=== PATIENT | female | born 1960 | race Caucasian/White ===

== ENCOUNTER 2025-01-17 03:22 | Day surgery (SDC) | payer OTHER, SELFPAY ==
[2025-01-08 13:41] VITALS: BMI 23.6
--- OUTSIDE RECORDS SUMMARY | 2025-01-17 03:25 | XMS_ITS | Referral Summary ---
Author Organization [facility] Address [address] [place] [address] Care Team Providers Care Gymnastic Teacher Name Role Phone Kasia Hubbard CHRONIC DISEASE MANAGER Primary Care Provider Allergies Active Allergy Reactions Criticality Noted Date Comments Cephalexin Rash Medium 01/01/2023 Latex Rash Medium 01/01/2023 Medications naproxen (NAPROSYN) 500 mg tablet Take 1 tablet (500 mg total) by mouth 2 (two) times a day with meals 30 tablet 01/01/2023 Active acetaminophen ER (TYLENOL) 650 mg 8 hr tablet Take 1 tablet (650 mg total) by mouth every 8 (eight) hours as needed for pain Active Active Problems Problem Noted Date Diagnosed Date Closed nondisplaced fracture of left calcaneus 0 01/21/2023 Social History Tobacco Use Types Packs/Day Years Used Date Smoking Tobacco: Never Tobacco Cessation:Counseling Given: Not Answered Personal Safety Answer Date Recorded Have you ever been in or are you currently in a harmful physical or emotional relationship or is someone making you feel afraid or unsafe? 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 Not on file Not on file Not on file Last Filed Vital Signs Vital Sign Reading Time Taken Comments Blood Pressure 129/87 01/01/2023 9:52 AM CDT Pulse 67 01/01/2023 9:52 AM CDT Temperature 36.6 C (97.9 F) 01/01/2023 8:45 AM CDT Respiratory Rate 18 01/01/2023 9:52 AM CDT Oxygen Saturation 98% 01/01/2023 9:52 AM CDT Inhaled Oxygen Concentration - - Weight 72.6 kg (160 lb) 04/13/2023 8:35 AM CDT Height 170.2 cm (5' 7) 04/13/2023 8:35 AM CDT Body Mass Index 25.06 04/13/2023 8:35 AM CDT Plan of Treatment Not on file Procedures Procedure Name Priority Date/Time Associated Diagnosis Comments SCREENING MAMMOGRAM BILATERAL W JONATHAN Schedule Routine, Read Routine (OP Routine) 06/15/2024 7:43 AM CDT Screening mammogram, encounter for from Last 3 Months or Most Recently Relevant to Health Maintenance Results * Screening Mammogram Bilateral W Jonathan (06/15/2024 7:43 AM CDT) Anatomical Region Laterality Modality Breast Bilateral Mammography Impressions 06/15/2024 8:42 AM CDT BI-RADS ATLAS category (overall): 1 - Negative There is no mammographic evidence of malignancy. A 1 year screening mammogram is recommended. The patient has been or will be contacted. We recommend annual screening mammography for women at average risk of breast cancer beginning at age 40, based on guidelines of the [employer] (ACR Practice Parameter for the Performance of Screening and Diagnostic Mammography) and [employer] of Obstetricians [employer] Gynecologists. For women with and elevated risk of breast cancer, please refer to the ACR Practice Parameter for specific screening recommendations. The patient will be entered into a reminder system with a target due date of 1 year for her next screening exam. Narrative 06/15/2024 8:42 AM CDT Screening Mammogram Bilateral W Jonathan: 06/15/24 The study was acquired using full field digital technology and interpreted from soft copy. 2D digital mammographic views, as well as 3D digital tomosynthesis were performed in the CC and MLO projections. CLINICAL: Screening mammogram, encounter for. No relevant medical history has been documented for this patient. No known family history of breast cancer. COMPARISONS: 09/23/2022 Screening Mammogram Bilateral W Jonathan 07/20/2021 Screening Mammogram Bilateral W Jonathan 11/06/2018 Screening Mammogram Bilateral W Jonathan 02/23/2017 Diagnostic Mammogram Bilateral W Jonathan 08/25/2016 Diagnostic Mammogram Bilateral W Jonathan 07/27/2016 Screening Mammogram Bilateral W Jonathan BREAST TISSUE: There are scattered areas of fibroglandular density. FINDINGS: No suspicious masses, suspicious calcifications, or other suspicious findings are seen within either breast. There has been no suspicious change. us Self Screening Mammogram IMG MAMMO PROCEDURES Fi nal Result from Last 3 Months or Most Recently Relevant to Health Maintenance Insurance Member Subscriber Plan / Payer (Ef fective 2020-Present) Name:Sil Wilson Relation to Subscriber:Self Name:Sil Wilson Payer ID:[id number] (NAIC) Type:[facility] HMO/PPO Address: [place] [phone] Care Teams Gymnastic Teacher Relationship Specialty Start Date End Date Kasia Hubbard NP [address] [place] [address] PCP - General Nurse Practitioner 06/06/24
--- OUTSIDE RECORDS SUMMARY | 2025-01-17 03:25 | XMS_ITS | Encounter Summary ---
Author Organization [facility] Address [address] [place] [address] Care Team Providers Care Shared Services Representative Name Role Phone Unavailable Primary Care Provider Unavailgary e Encounter Details Date Type Department Care Team (Late st Contact Info) Description 04/20/2018 Lab Requisition [facility] Care DermPath Lab [address] [facility] [place] [id number] Sil Steel MD [address] [facility] [address] [place] [address] Social History Tobacco Use Types Packs/Day Years Used Date Smoking Tobacco: Never Assessed Comments Unknown Sex and Gender Information Value Date Recorded Sex Assigned at Not on file Legal Sex Female 3:09 PM CDT Gender Identity Not on file Sexual Orientation Not on file documented as of this encounter Plan of Treatment Not on file documented as of this encounter Procedures Procedure Name Priority Date/Time Associated Diagnosis Comments DERMATOPATH TECHNICAL REPORT Routine 04/18/2018 12:00 AM CDT documented in this encounter Results * DERMATOPATH TECHNICAL REPORT (04/18/2018 12:00 AM CDT) Case Report Dermatopathology Report Case: [id number] Authorizing Provider: Sil Steel MD Collected: 04/18/2018 12:00 AM Pathologist: Mery Crain MD Received: 04/20/2018 06:39 AM Specimens: A) - Skin, right lower leg - superior B) - Skin, right lower leg - inferior 1:20 PM CDT DERMATOPATHOLOGY LABORATORY Clinical History A-B: BCC, non-healing. Check margins. 1:20 PM CDT DERMATOPATHOLOGY LABORATORY Gross Description Specimen A: Received is one formalin filled container labeled with the patient's name and designated right lower leg - superior. The specimen consists of a shave measuring [id number]. The margin is inked green. Jar 0. Specimen B: Received is one formalin filled container labeled with the patient's name and designated right lower leg - inferior. The specimen consists of a shave measuring [id number]. The margin is inked green. Jar 0. [facility] Dermatopathology Laboratory performed the technical component only. 8 1:20 PM CDT DERMATOPATHOLOGY LABORATORY Embedded Images 1:20 PM CDT DERMATOPATHOLOGY LABORATORY DISCLAIMER An external and internal positive and negative controls are appropriate for the histochemical, immunohistochemical and immunofluorescence stain(s) in this case (if any), except where stated explicitly. The performance characteristics of the stain(s) cited in this report were developed and its performance characteristic determined by the Dermatopathology Laboratory at [facility]. These tests need not be, and therefore are not, approved by the [place] Food and Drug Administration. The tests are used for clinical purposes. 8 1:20 PM CDT DERMATOPATHOLOGY LABORATORY at 1320 CDT Pathology/Cytology TISSUE SPECIMEN FROM SKIN / Unknown 04/18/2018 04/20/2018 6:39 AM CDT Miscellaneous samples (specimen) TISSUE SPECIMEN FROM SKIN / Unknown 04/18/2018 04/20/2018 6:39 AM CDT Sil Steel MD LAB - PATHOLOGY/CYTOLOGY OR DERABLES Final Result DERMATOPATHOLOGY LABORATORY [facility] - Department of Dermatology [facility] [facility] [address]th [address] [place], [place] [address] [phone] documented in this encounter Visit Diagnoses Not on filedocumented in this encounter
--- OUTSIDE RECORDS SUMMARY | 2025-01-17 03:25 | XMS_ITS | Clinical Summary ---
Author Organization [facility] Address [address] [place] [address] Care Team Providers Care Associate Merchandiser Name Role Phone Kasia Hubbard CUSTOMER QUALITY ENGINEER Primary Care Provider Allergies Active Allergy Reactions [...] nondisplaced fracture of left calcaneus 0 01/21/2023 Surgical History Surgery Date Site/Laterality Comments BACK SURGERY 08/22/2005 - 08/21/2006 micro discectomy Medical History Medical History Date Comments Asthma Family History Medical History Relation Name Comments Arthritis Father Heart disease Father Hernia Father Ulcers Father Arthritis Mother Diverticulitis Mother Relation Name Status Comments Father Mother Social History Tobacco Use Types Packs/Day Years [...] on file Legal Sex Female 5:52 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 Gender Identity Not on file Sexual Orientation Not on file Occupation Industry Job Start Date Job End Date 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 Not on file Not on file Not on file Obstetrics History Para Term AB IAB SAB Ectopic Multiple Livin g Live Births 1 1 1 Date Outcome GA Total Labor Labor/2nd/3rd Weight Sex Type Anes PTL Indira A1 A5 Name Clin Term Last Filed Vital Signs Vital Sign Reading [...] 04/13/2023 8:35 AM CDT Plan of Treatment Health Maintenance Due Date Last Done Comments Cervical Cancer Screening 1962 Colon Cancer Screening-Colonoscopy 1962 Depression Screening 1962 Hepatitis C Screening 1962 DTaP/Tdap/Td Vaccine (1 - Tdap) 1973 Hepatitis B Screening 1980 Regular Well Visit/Exam 18-64 1980 Pneumococcal vaccine <65 (1 of 2 - PCV) 1981 Zoster Vaccine (1 of 2) 2012 Covid-19 Vaccine (2 - 2023-2 5 season) 2024 01/05/2021 Influenza Vaccine (Season Ended) 2025 05/24/2019, 08/20/2013, 07/06/2013, Additional history exists Breast Cancer Screening-Mammogram 06/15/2025 06/15/2024, 09/23/2022, 07/20/2021, Additional history exists Procedures Procedure Name Priority Date/Time Associated Diagnosis [...] age 40, based on guidelines of the [place] [employer] (ACR Practice Parameter for the Performance of Screening and Diagnostic Mammography) and [place] [employer]nec[employer]. For women [...] Most Recently Relevant to Health Maintenance Insurance [id number] [place] [id number] [facility] CHO[facility] PLUS [facility] Address: [place] [address] [facility] PLUS [facility]O [place] [address] Care Teams Associate Merchandiser Relationship Specialty Start Date End Date Kasia Hubbard NP [address] [place] [address] DE[place] [address] PCP - General Nurse Practitioner 06/06/24
--- OUTSIDE RECORDS SUMMARY | 2025-01-17 03:25 | XMS_ITS | Clinical Summary ---
Author Organization [facility] [employer] Address [address] [facility] [place] [address] Care Team Providers Care Sas Architect Name Role Phone Unavailable Primary Care Provider Unavailabl e Source Comments [facility] Social [employer],non-owned Affiliates and Associated Physician Practices is amultiple site organization consisting of ambulatory clinics and hospital sitesin [place], [place], [place] and [place]. This disclosure is being madepursuant to the Care Everywhere program and may not contain all information available regarding this patient. Last updated 18.[facility] Social Tools Social History Tobacco Use Types Packs/Day Years Used Date Smoking Tobacco: Never Assessed Comments Unknown Sex and Gender Information Value Date Recorded Sex Assigned at Not on file Legal Sex Female 3:09 PM CDT Gender Identity Not on file Sexual Orientation Not on file Plan of Treatment Health Maintenance Due Date Last Done Comments COLOGUARD (AGES 45-75) - COL ON CA SCREENING 1962 COLON MONITORING 1962 COLONOSCOPY - COLON CA SCREENING 1962 CT COLONOGRAPHY - COLON CA SCREENING 1962 Colorectal Cancer Screening 1962 FIT - COLON CA SCREENING 1962 FLEX SIG - COLON CA SCREENING 1962 LIPID TESTING 1962 MAMMOGRAM 1962 HIV SCREENING 1977 HEPATITIS C SCREENING 07/26/1980 DTAP/TDAP/TD VACCINES (1 - Tdap) 1981 PNEUMOCOCCAL VACCINE 50+ (1 of 1 - PCV) 2012 ZOSTER VACCINE (1 of 2) 2012 COVID-19 VACCINE ( - 2023-2 5 season) 2024 DEPRESSION SCREENING 08/22/2024 INFLUENZA VACCINE (Season Ended) 2025 Respiratory Syncytial Virus (RSV) Vaccine Pt: or over 60 yrs (1 - 1-dose 75+ series) 2037 HEPATITIS B VACCINE Aged Out No longe r eligible based on patient's age to complete this topic HIB VACCINE Aged Out No longer eligi ble based on patient's age to complete this topic HPV VACCINE Aged Out No longer eligi ble based on patient's age to complete this topic MENINGOCOCCAL (Group B) VACC INE SHARED DECISION-MAKING Aged Out No longer eligibl e based on patient's age to complete this topic MENINGOCOCCAL GROUPS A/C/Y/W VACCINE Aged Out No longer eligible b ased on patient's age to complete this topic Insurance [facility] Address: [facility] [id number] [place] [address]
--- OUTSIDE RECORDS SUMMARY | 2025-01-17 03:25 | XMS_ITS | Data Portability ---
Author Organization [place] - [facility] [employer], Main Office Address [address] [place] [address] Care Team Providers Care Sound Effects Person Name Role Phone TESS DUVALL Primary Care Provider TESS DUVALL Referring Provider [phone] Assessment No assessment recorded. Plan of Treatment Reminders Order Date Submit Date Provider Last Modified By Organization Details Last Modified Time Details Appointments None recorded. Lab TSH, ultra-sensi tive, serum 2024 025 shilpi [facility], [id number], [place], [address], 5 12:19:39 CBC w/ auto diff 2024 025 NEDA [facility], [address], [place], [address], 5 09:25:50 lipid panel, serum 2024 025 shilpi [facility], [address], [place], [address], 5 12:19:38 CMP, serum or plasma 2024 025 shilpi [facility], [address], [place], [address], 5 12:19:38 HbA1c (hemoglobin A1c), blood 2024 025 shilpi [facility], [address], [address], 12:19:39 Referral gastroenter ologist referral - Please call patient to schedule an appointment . Thank you. 2024 025 [email or web address] [facility], [address], [address], [place], [address], 17:29:08 Procedures None recorded. Surgeries None recorded. Imaging DEXA - Please call patient to schedule.No te from provider: Hx of recurrent fractures [email or web address] [place] [address] Imaging Center, [address], [place], [address], 15:59:29 Medication Orders celecoxib 100 mg capsule 2024 025 [facility]armacy #2713, [address], [place], [address], 08:49:21 Medrol (Arun) 4 mg tablets in a dose pack 2024 025 [facility]acy #2713, [address], [place], [address], 08:49:21 triamcinolo ne acetonide 40 mg/mL suspension for injection 2023 024 Not available 08:25:00 sulfamethox azole 800 mg-trimetho prim 160 mg tablet 2023 024 [facility]/Pharmacy #2713, [address], [place], [address], 5 08:24:55 hydroxyzine HCl 25 mg tablet 2023 024 [email or web address] [facility]/Pharmacy #2713, [address], [place], [address], 5 08:24:48 doxycycline monohydrate 100 mg capsule [address]/Pharmacy #2713, [address], [place], [address], 4 15:19:02 hydroxyzine HCl 25 mg tablet [address]/Pharmacy #2713, [address], [place], [address], 5 08:24:48 triamcinolo ne acetonide 40 mg/mL suspension for injection 2023 024 [email or web address] Not available 5 08:25:00 betamethaso ne acetate and sodium phos 6 mg/mL suspension for injection 2023 024 [email or web address] Not available 4 15:18:56 prednisone 20 mg tablet [address]/Pharmacy #2713, [address], [place], [address], 4 15:19:12 albuterol sulfate HFA 90 mcg/actuati on aerosol inhaler 2023 024 [facility]/Pharmacy #2713, [address] [facility], [place], [address], 4 09:47:35 valacyclovi r 500 mg tablet 2023 024 [facility] #2713, [address], [place], [address], 4 09:47:35 Patient TargetsNo targets recorded. Patient InstructionsNo instructions recorded. Reason for Referral [employer] Referral for Screening for malignant neoplasm of colon Please call patient to schedule an appointment. Thank you. Referring Physician: Kasia Hubbard, Family Medicine, Encounter Date: 09/25/2024 Results Created Date Observation Date Name Description Value Unit Range Abnormal Flag Note LastModifiedBy Organization Detail LastModifiedTime 06/15/20 24 06/15/2024 MAMMO yosef bilat eral No observ ation record ed. [facility] [address] [place], [address], 06/15/2024 11:12:44 Result Notes None recorded. Problems Name Problem SNOMED Code Status Onset Date Resolution Date Notes Provider Name and Address Organization Details Recorded Time Constipati on 96893037 Active Not Available [facility] 3 08:09:18 Acute sinusitis 71739791 Active Not Available [facility] 3 08:09:18 Otalgia 56358738 Active Not Available [facility] 3 08:09:18 Backache 095402462 Active Not Available [facility] 3 08:09:18 Excessive upper gastrointe stinal gas 296289082 Active Not Available [facility] 3 08:09:18 Pain in throat 861611280 Completed 09/25/2024 Kasia Hubbard, WELD FITTER [address] [facility], [facility] [address], [place], [address] , [facility] 5 08:47:01 Contact dermatitis caused by urushiol from [place] poison dian 341126676 Active Not Available [facility] 3 08:09:18 Pain of joint of wrist 543221677 Active Not Available [facility] 3 08:09:18 Viral myalgia 298767766 Active 2021 Not Available [facility] 3 08:09:18 Fluid level behind tympanic membrane Active Not Available [facility] 3 08:09:19 Sprain of spinal ligament 720844562 Active Not Available [facility] 3 08:09:19 Bronchitis 38801890 Active 2021 Not Available [facility] 3 08:09:19 Strain of neck muscle 277950958 Active Not Available [facility] 3 08:09:19 Arthritis 7867991 Active 2021 Not Available [facility] 3 08:09:19 Seasonal allergy 637806321 Active Not Available [facility] 3 08:09:19 Shooting pain 11977401 Active Not Available [facility] 3 08:09:19 Cough 04371793 Active Not Available [facility] 3 08:09:19 Upper respirator y infection 56201272 Active Not Available [facility] 3 08:09:19 Otitis media 98073026 Active Not Available [facility] 3 08:09:19 Capsulitis 7811720 Active 2021 Not Available [facility] 3 08:09:19 Posterior rhinorrhea 60808063 Active Not Available [facility] 3 08:09:19 Congestion of nasal sinus 36320164 Active Not Available [facility] 3 08:09:20 Chronic pain 82760701 Active Not Available [facility] 3 08:09:20 Fatigue 84932343 Active Not Available [facility] 3 08:09:20 Recurrent herpes simplex 14518354 Active 2023 JAYDEN Argueta [address], [address], [place], [address] , [employer] [facility] [employer] [facility] 4 09:24:29 Asthma 480617216 Active 2023 JAYDEN Argueta [address], [address], [place], [address] , [employer] [facility] [employer] [facility] 4 09:25:04 Acute bacterial sinusitis 12463597 Active 2023 JAYDEN Argueta [address], [address], [place], [address] , [employer] [facility] [employer] [facility] 4 09:44:38 Allergic reaction caused by insect bite and/or insect sting 916813836 Active 2023 JAYDEN Argueta [address], [address], [place], [address] , [facility] [employer] [facility] 4 15:30:22 Allergic contact dermatitis 749039000 Active 2023 JAYDEN Argueta [address] [address], [place], [address] , [facility] [employer] [facility] 4 08:54:52 Dysfunctio n of eustachian tube 93498720 Active 2024 JAYDEN Argueta [address] [address], [place], [address] , [facility] [employer] [facility] 5 08:46:53 Problem Notes None recorded. Procedures Surgical History Date Name Laterality Status Provider Name and Address Organization Details Recorded Time 06/15/20 Most Recent Mammogram completed Tess Yin RN [facility] 09/25/2024 08:30:14 Microdiscectomy completed Not Available [facility] 10/20/2022 08:05:51 Imaging Results None recorded. Procedure Notes None recorded. Medical Equipment None Reported. Allergies Allergen ID Allergen Name Allergen Category Reaction Reaction Severity Criticality Documentation Date Start Date Code Code System Note Provider Name and Address Organization Details Recorded Time Keflex medicatio n hives Not available Not available 10/20/202243812 7 RxNorm Not Available [facility] 3 08:13:24 24272 Product containin g penicilli n (product) medicatio n Not available Not available Not available 10/20/2022 18070 8001 SNOMED pt state s not aller gic Not Available [facility] 3 08:13:25 79352 latex environme nt,medica tion Not available Not available Not available 11/30/2023 36094 91 RxNorm [facility] [employer] [facility] 4 09:04:17 Medications Name Sig Start Date Stop Date Status Note LastModified by Organization Details LastModified Time cyclobenzap rine 10 mg tablet 1 PO TID PRN active Not Available Not Available No t Available Colace 100 mg capsule Take 1 capsule twice a day by oral route as directed for 30 days. active Not Available Not Available No t Available prednisone 10 mg tablet 4 tabs po for 4 days, then 3 tabs po for 4 days, then 1 tab po for 4 days. active Not Available Not Available No t Available doxycycline hyclate 100 mg capsule Take 1 capsule twice a day by oral route for 10 days. active Not Available Not Available No t Available Depo-Medrol 40 mg/mL suspension for injection Take 40 mg by injection route. active [facility]# [phone] Not Available Not Available Not Available triamcinolo ne acetonide 0.5 % topical cream APPLY THIN COAT TO AFFECTED AREA TWICE A DAY 09/20 completed Not Available Not Available Not Available azithromyci n 250 mg tablet TAKE 2 TABLETS BY MOUTH TODAY, THEN TAKE 1 TABLET DAILY FOR 4 DAYS 09/20 completed Not Available Not Available Not Available ibuprofen 800 mg tablet 1 PO TID PRN active Not Available Not Available No t Available fluconazole 150 mg tablet TAKE 1 TABLET(S) EVERY DAY BY ORAL ROUTE FOR 1 DAY. 09/22 completed Not Available Not Available Not Available benzonatate 200 mg capsule Take 1 capsule every 8 hours by oral route as needed for 7 days. 09/20 completed Not Available Not Available Not Available Claritin 10 mg tablet Take 1 tablet every day by oral route in the morning for 30 days. 05/04 completed Not Available Not Available Not Available meloxicam 15 mg tablet TAKE 1 TABLET BY MOUTH EVERY DAY IN THE MORNING 09/20 completed Not Available Not Available Not Available prednisone 20 mg tablet TAKE 2 TABLETS BY MOUTH EVERY DAY FOR 3 DAYS THEN 1 TABLET DAILY FOR 4 DAYS 04/10 completed Not Available Not Available Not Available valacyclovi r 500 mg tablet TAKE 1 TABLET BY MOUTH TWICE A DAY NEEDED FOR 90 DAYS active Not Available Not Available No t Available ciprofloxac in 500 mg tablet active Not Available Not Available Not Available sulfamethox azole 800 mg-trimetho prim 160 mg tablet TAKE 1 TABLET BY MOUTH EVERY 12 HOURS DIRECTED FOR 7 DAYS 09/25 completed Not Available Not Available Not Available triamcinolo ne acetonide 0.1 % topical cream APPLY A THIN LAYER TO THE AFFECTED AREA(S) BY TOPICAL ROUTE 2 TIMES PER DAY FOR 7-10 DAYS 09/25 completed Not Available Not Available Not Available betamethaso ne acetate and sodium phos 6 mg/mL suspension for injection Take 1 mL as needed by injection route as directed. 04/10 completed Not Available Not Available Not Available amoxicillin 875 mg tablet TK 1 T PO Q 12 H WITH MEALS FOR 10 DAYS active Not Available Not Available No t Available prednisolon e acetate 1 % eye drops,suspe nsion INSTILL 1 DROP IN OU QID FOR 10 DAYS 12/12 completed Not Available Not Available Not Available betamethaso ne valerate 0.1 % topical cream APPLY SPARINGLY TO AFFECTED AREA EVERY DAY for rash x 10 days active Not Available Not Available No t Available benzonatate 100 mg capsule TAKE 1 CAPSULE BY MOUTH EVERY 4 TO 6 HOURS DIRECTED FOR 15 DAYS 12/19 completed Not Available Not Available Not Available doxycycline monohydrate 100 mg capsule TAKE 1 CAPSULE BY MOUTH TWICE A DAY DIRECTED FOR 10 DAYS 04/10 completed Not Available Not Available Not Available triamcinolo ne acetonide 40 mg/mL suspension for injection Take 60 mg every day by injection route for 1 day. 09/25 completed Not Available Not Available Not Available oseltamivir 75 mg capsule TAKE 1 CAPSULE BY MOUTH EVERY DAY 09/20 completed Not Available Not Available Not Available diclofenac sodium 75 mg tablet,aminah yed release 06/12 completed Not Available Not Available Not Available montelukast 10 mg tablet TK 1 T PO QPM active Not Available Not Available No t Available hydroxyzine HCl 25 mg tablet TAKE 1 TABLET BY MOUTH THREE TIMES A DAY NEEDED 09/25 completed Not Available Not Available Not Available Nasonex 50 mcg/actuati on Edmond Edmond 2 sprays every day by intranasa l route as directed for 30 days. active Not Available Not Available No t Available levofloxaci n 500 mg tablet TK 1 T PO QD FOR 10 DAYS active Not Available Not Available No t Available methylpredn isolone 4 mg tablets in a dose pack TAKE 6 TABLETS ON DAY 1 DIRECTED ON PACKAGE AND DECREASE BY 1 TAB EACH DAY FOR A TOTAL OF 6 DAYS active Not Available Not Available No t Available albuterol sulfate HFA 90 mcg/actuati on aerosol inhaler INHALE 2 PUFFS BY MOUTH EVERY 4 TO 6 HOURS NEEDED active Not Available Not Available No t Available celecoxib 100 mg capsule TAKE 1 CAPSULE BY MOUTH THREE TIMES A DAY NEEDED FOR 30 DAYS active Not Available Not Available No t Available fluticasone propionate 50 mcg/actuati on nasal spray,suspe nsion USE 2 SPRAYS IN EACH NOSTRIL DAILY 09/20 completed Not Available Not Available Not Available doxycycline hyclate 100 mg tablet TAKE 1 TABLET BY MOUTH TWICE A DAY DIRECTED FOR 7 DAYS 09/25 completed Not Available Not Available Not Available Augmentin 500 mg-125 mg tablet Take 1 tablet every 12 hours by oral route for 10 days. 09/20 completed Not Available Not Available Not Available naproxen 500 mg tablet TAKE 1 TABLET BY MOUTH TWICE A DAY WITH MEALS 04/10 completed Not Available Not Available Not Available amoxicillin 875 mg-potassiu m clavulanate 125 mg tablet TAKE 1 TABLET BY MOUTH EVERY 12 HOURS FOR 7 DAYS active Not Available Not Available No t Available Tylenol Extra Strength 500 mg tablet Take 1 tablet 4 times a day by oral route as directed for 30 days. 02/06 completed Not Available Not Available Not Available cyclobenzap rine 5 mg tablet active Not Available Not Available Not Available Suprep Bowel Prep Kit 17.5 gram-3.13 gram-1.6 gram oral solution active Not Available Not Available Not Available Vitals Date Recorded Body height Body mass index (BMI) Body weight Body temperature Heart rate Respiratory rate Oxygen saturation Oxygen saturation in Arterial blood by Pulse oximetry Systolic blood pressure Diastolic blood pressure Provider Name and Address Organization Details Last Updated DateTime 5 172.72 cm 22.4 kg/m2 60501.1 3 g 97.2 [degF] 68 /min 20 /min 97 % 97 % 128 mm[Hg] 82 mm[Hg] Tess Yin RN [facility] [employer] 5 08:28:30 Date Recorded Body weight Body mass index (BMI) Body height Body temperature Heart rate Respiratory rate Oxygen saturation Oxygen saturation in Arterial blood by Pulse oximetry Systolic blood pressure Diastolic blood pressure Provider Name and Address Organization Details Last Updated DateTime 4 61269.9 7 g 20.5 kg/m2 172.72 cm 96.9 [degF] 80 /min 20 /min 97 % 97 % 136 mm[Hg] 80 mm[Hg] Tess Yin RN [facility] [employer] [facility] 4 09:08:53 Date Recorded Body height Provider Name an d Address Organization Details Last Updated DateTime 12/13/2023 172.72 cm Tess Yin RN [place] [facility] [employer] 12/13/2023 08:21:03 Date Recorded Body height Body mass index (BMI) Body weight Body temperature Heart rate Oxygen saturation Oxygen saturation in Arterial blood by Pulse oximetry Respiratory rate Systolic blood pressure Diastolic blood pressure Provider Name and Address Organization Details Last Updated DateTime 172.72 cm 20.3 kg/m2 12312.9 4 g 97.4 [degF] 80 /min 98 % 98 % 20 /min 128 mm[Hg] 70 mm[Hg] Tess Yin RN [place] [facility] 15:21:42 Social History Question Answer Notes LastModified by Organizat ion Details LastModified Time Tobacco Smoking Status Never Smoker Not Available [facility] 10/20/2022 08:05:43 Do You Have An Advance Directive? No Information not available 11/30/2023 What Is Your Level Of Caffeine Consumption? Moderate [id number] Information not available 10/20/2022 How Much Tobacco Do You Chew? None [id number] Information not available 10/20/2022 In The 14 Days Before Symptom Onset, Have You Had Close Contact With A Laboratory-confir med COVID-19 While That Case Was Ill? No [id number] Information not available 10/20/2022 In The 14 Days Before Symptom Onset, Have You Had Close Contact With A Person Who Is Under Investigation For COVID-19 While That Person Was Ill? No [id number] Information not available 10/20/2022 What Type Of Diet Are You Following? REGULAR [id number] Information not available 10/20/2022 Which Illicit Or Recreational Drugs Have You Used? None [id number] Information not available 10/20/2022 Have There Been Any Changes To Your Family Or Social Situation? Yes Information no t available 11/30/2023 Are There Any Guns Present In Your Home? No Information not available 11/30/2023 Do You Use Insect Repellent Routinely? Yes Information not available 11/30/2023 [facility] 11/30/2023 Do You Have A Medical Power Of Tenoner Operator? No Information not available 11/30/2023 What Was The Date Of Your Most Recent Tobacco Screening? 09/21/2021 [id number] Information not available 10/20/2022 How Many Children Do You Have? 1 Information not available 11/30/2023 Have You Ever Been Counseled For Unhealthy Alcohol Use? No [id number] Information not available 10/20/2022 Do You Have Any Pets? Yes Information not available 11/30/2023 What Is Your Relationship Status? Information not available 11/30/2023 Do You Use Your Seat Belt Or Car Seat Routinely? Yes Information not available 11/30/2023 Do You Have Smoke And Carbon Monoxide Detectors In Your Home? Yes Information not available 11/30/2023 Are You Passively Exposed To Smoke? No Information no t available 11/30/2023 Are There Any Smokers In Your House? No Information not available 11/30/2023 Do You Participate In Social Media? Yes Information not available 11/30/2023 Do You Use Sunscreen Routinely? Yes Information not available 11/30/2023 Have You Recently Traveled Abroad? No Information not available 11/30/2023 Sex: Unknown Functional Status Question Answer Note LastModified by Organ[employer]ileron Therapeuticsat ion Details LastModified Time Do you use any illicit or recreational drugs? No [id number] Information not available 10/20/2022 Do you or have you ever used any other forms of tobacco or nicotine? No [id number] Information not available 10/20/2022 What is your level of alcohol consumption? Occasional [id number] Information not available 10/20/2022 Are you currently employed? Yes Information not available 04/10/2024 What is your occupation? [employer] [id number].[id number] Information not available 10/20/2022 Do you or have you ever used e-cigarettes or vape? Never used electronic cigarettes [id number] Information not available 10/20/2022 What is your exercise level? Occasional Information not available 11/30/2023 Mental Status Question Answer Note LastModified by Organization D etails LastModified Time Do you feel stressed (tense, restless, nervous, or anxious, or unable to sleep at night)? [id number] Information not available 04/10/2024 Family History Relationship Description Onset Age of this Age Resolved Age Notes LastModified by Organization Details LastModified Time Mother Malignant neoplasm of lung [id number] Not available 10/20/2022 08:05:53 Medical History Condition Response ASTHMA Y ARTHRITIS Y HEADACHES/MIGRAINES Y DIZZINESS Y Gynecological History Statement/Question Response If Post Menopausal, Age at Menopause 55 Date of Last Pap Smear Date of Last Colonoscopy Most Recent Mammogram 06/15/2024 Most Recent Bone Density Obstetrics History GPAL:G 0 P 0 0 0 0 Immunizations Vaccine Type Date Status Note Provider Nam e and Address Organization Details Recorded Time SARS-COV-2 (COVID-19) vaccine, UNSPECIFIED 1 completed Not Available [facility] 10/20/2022 08:13:17 Influenza, split virus, trivalent, preservative 3 completed Not Available [facility] 10/20/2022 08:13:17 Influenza, split virus, trivalent, preservative 3 completed Not Available [facility] 10/20/2022 08:13:17 Influenza, split virus, trivalent, preservative 1 completed Not Available [facility] 10/20/2022 08:13:17 Influenza, split virus, trivalent, preservative 0 completed Not Available [facility] 10/20/2022 08:13:18 Influenza, split virus, quadrivalent, PF 9 completed Not Available [facility] 10/20/2022 08:13:18 Past Encounters Encounter ID Performer Location Encounter Start Date Encounter Closed Date Diagnosis/Indication Diagnosis SNOMED-CT Code Diagnosis ICD10 Code Diagnosis Note [id number] Bruce Peraza MD Mariam_[facility] [address] [place] [address] 01/23/2021 00:00:00 01/23/2021 15:06:20 [id number] MD DL Marquez_[address] [address] 02/17/2021 00:00:00 02/17/2021 16:26:18 [id number] Bruce Peraza MD [address] [address] 09/15/2021 00:00:00 09/15/2021 12:55:50 [id number] CONSTANTIN MataATHENA_Mery IGRATION_ DEFAULT_1 _1 , 09/21/2021 00:00:00 09/21/2021 20:03:24 [id number] CONSTANTIN MataATHENA_M IGRATION_ DEFAULT_1 _1 , 10/26/2021 00:00:00 10/26/2021 16:28:54 [id number] Tess Duvall NP [address] [address] 03/10/2022 00:00:00 03/10/2022 17:58:58 [id number] Bruce Peraza MD [address] [address] 07/26/2022 00:00:00 07/26/2022 16:23:07 [id number] Bruce Peraza MD [address] [address] 11/30/2023 08:56:37 11/30/2023 10:48:36 Recurrent herpes simplex 36702501 B00.9 Asthma 661512371 J45.90 9 Contact de rmatitis caused by urushiol from [facility] dian 862581211 L25.5 Acute bact erial sinusitis 75767248 J01.90 [id number] Bruce Peraza MD [address] [address] 12/13/2023 08:15:45 12/13/2023 09:51:37 [id number] Bruce Peraza MD [address] [place] [address] 04/10/2024 15:11:29 04/10/2024 16:00:05 Allergic reaction caused by insect bite and/or insect sting 387384441 T78.40XA [id number] Bruce Peraza MD [facility] [address] [address] 09/25/2024 08:20:15 09/25/2024 08:56:11 Adult health examination 964279192 Z00.00 Patient is in good healthHeal th maintenanc e reviewedPa tient questions answeredDi scussed diet/exerc ise Screening for malignant neoplasm of colon 865980368 Z12.11 Arthritis 1534044 M19.90 Chronic pain related to arthritis of KAYLA ankles and neck Dysfunctio n of eustachian tube 10180288 H69.93 Secondary to recent sinusitis Cholesterol screening 27 4235608 Z13.220 Diabetes m ellitus screening 142522046 Z13.1 Thyroid di sorder screening 421058112 Z13.29 Postmenopausal [place] [phone] Z78.0 Health Concerns Section Related Observation LastModified by Organization Detai ls LastModified Time None Recorded Concern Status LastModified by Organization Details LastModified Time None Recorded Advance Directives Directive N: Payers Encounter Date Sequence Insurance Name Policy Number Policy Do Covered Member ID Do Member ID Guarantor Name 11/30/2023 1 [facility] [id number] Sil E Stamper [id number] [employer] 12/13/2023 1 [place] [id number] Sil E Stamper [id number] [id number] 04/10/2024 1 [facility] [id number] Sil [employer] [id number] Shyla Stamper 09/25/2024 1 [place] [id number] Sil E Stamper [id number] Shyla Wilson Notes Date Note Type Note Provider Name and Address Organization Details Recorded Time 11/30/2023 text/html She pulled weeds in her flower bed on Tuesday11/28/23. She has red, blistery rash on her neck, chest, and down to her armpit. This is closely approaching her face. 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 She also has post nasal drip and head aches behind her eyes. She does take a daily flonase and Olinda. She saw ENT once and had a scope of her sinuses and was told there were no serious issues. She has a history of genital herpes. She has frequent breakouts especially in the summer. She likes to keep valacyclovir 500 mg PO BID on hand. She as a history of allergy induced asthma. She requires albuterol inhaler PRN. JAYDEN Argueta [address] [facility], [address], [place], [address], [employer] [facility] [employer] [facility] 11/30/2023 10:57:42 04/10/2024 text/html Shyla Wilson is a 63 year old female patient here today for hand complaints Believes she was stung by a wasp on Tuesday on the right hand. Right hand is red and swollen and painful. She has used a baking soda paste, meat tenderizer paste, and ice with no relief. Redness streaking up right forearm. JAYDEN Argueta [address] [facility], [facility] [address], [place], [address], [employer] 04/10/2024 15:44:18 09/25/2024 text/html She pulled weeds in her flower bed on Tuesday11/28/23. She has red, blistery rash on her neck, chest, and down to her armpit. This is closely approaching her face. She reports that she is prone to poison and this happens almost annually She has a history of genital herpes. She has frequent breakouts especially in the summer. She likes to keep valacyclovir 500 mg PO BID on hand. She as a history of allergy induced asthma. She requires albuterol inhaler PRN. Recently completed a round of antibiotics for bacterial sinusitis. States she feels clogged still. She is taking Olinda daily. Chronic pain in left foot r/t arthritis and past fractures Chronic pain in neck related to discectomy in 2007. Occasional tingling. Seeing chiropractor. Neurosurgeon states he cannot do anything for her Flu shot: declinesCOVID vaccines: 2020Tdap: believes UTDPneumonia: PCV20 recommendedMammogra m: 10/25/24 was normalWWE: 2022, repeat in 5 years per per GYNColonoscopy: referral sentDEXA: would like due to frequent fractures Kasia Hubbard, WELD FITTER [address] [facility], [facility] [address], [place], [address], [place] [facility] [employer] [facility] 09/25/2024 09:02:19 OBGyn Episode No OBEpisode recorded.
[2025-01-17 07:39] VITALS: BP 120/70; PULSE 65; RESP 16; TEMP 35.9; O2SAT 99; BMI 21.3
[2025-01-17] MEDS: LACTATED RINGERS 1,000 ML 150 ML IV CONT (07:53)
--- NOTE | 2025-01-17 08:33 | PM.IMHP ---
H&P: HPI History of Present Illness Date/Time: 01/17/25 08:33 Chief Complaint: Screening Narrative: This is the patient's 2nd colonoscopy. There are no GI symptoms and there is no family history of colorectal cancer. Review of Systems Review of Systems: All systems reviewed & are unremarkable except as noted in HPI and below [facility] Social History Social History Smoking status: Never smoker Alcohol intake: current Drinks per week: 2 Substance use type: does not use Living arrangements: with family Spiritual care concerns: No Meds Home Medications and Allergies Home Medications ?Medication ?Instructions ?Recorded ?Confirmed ?Type valacyclovir 500 mg tablet 500 mg PO DAILY PRN fever blister 01/08/25 01/08/25 History Allergies Allergy/AdvReac Type Severity Reaction Status Date / Time latex AdvReac Mild Rash Verified 01/17/25 07:43 CEPHALEXIN MONOHYDRATE Allergy Severe hives Uncoded 01/17/25 07:43 swelling Vital Signs Vital Signs - 24 hr 01/17/25 07:39 Temperature 96.7 F L Pulse Rate 65 Respiratory Rate 16 Blood Pressure 120/70 Pulse Oximetry 99 Oxygen Delivery Room Air Exam Const: General: cooperative and healthy appearing Resp: Effort & Inspection: normal respiratory effort and able to speak in complete sentences Auscultation: clear to auscultation bilaterally Cardio: Rate: regular rate Rhythm: regular rhythm GI: Inspection: normal to inspection GI Palp: No No hepatosplenomegaly present Auscultation: normal bowel sounds Rectal Exam: deferred Skin: General skin exam: normal color Psych: Appearance: grossly normal Mental Status: mental status grossly normal Assessment and Plan Assessment and plan (1) Encounter for screening colonoscopy: Code(s): Z12.11 - Encounter for screening for malignant neoplasm of colon Status: Acute Assessment and Plan: The patient is deemed a good candidate for the procedure. Consent signed. Will proceed.
--- NOTE | 2025-01-17 08:40 | P.PNAN_ITS ---
Anes - Initial Pre Proc Eval Procedure: Operation Date: 01/17/25 09:00 Proposed Procedures p Screening Colonoscopy - Tod Finnegan MD Date/Time: 01/17/25 08:40 Surgeon: Tod Finnegan MD Pre Op Diagnosis: Screening Patient Data Age: 64 Gender: F Height: 1.73 m Weight: 63.7 kg Last Vital Signs Temp 96.7 F L 01/17/25 07:39 Pulse 65 01/17/25 07:39 Resp 16 01/17/25 07:39 BP 120/70 01/17/25 07:39 Pulse Ox 99 01/17/25 07:39 O2 Del Method Room Air 01/17/25 07:39 Allergies Allergy/AdvReac Type Severity Reaction Status Date / Time latex AdvReac Mild Rash Verified 01/17/25 07:43 CEPHALEXIN MONOHYDRATE Allergy Severe hives Uncoded 01/17/25 07:43 swelling Home Medications ?Medication ?Instructions ?Recorded ?Confirmed ?Type valacyclovir 500 mg tablet 500 mg PO DAILY PRN fever blister 01/08/25 01/08/25 History Patient hx anesthesia problems: none Family hx anesthesia problems: none Results Review: All pre-operative results and documents have been reviewed as part of the pre- operative evaluation. [facility] Social History Social History Smoking status: Never smoker Alcohol intake: current Drinks per week: 2 Substance use type: does not use Living arrangements: with family Spiritual care concerns: No Anes - Eval Final PreProcedure Day of Procedure 01/17/25 08:40 Patient weight: normal Heart: regular rate and rhythm Lungs: clear to auscultation Airway: Mallampati scale class II Neurological: alert and oriented Last oral intake: >/= 8 hours ASA classification: II Emergent: no Anesthetic plan: proceed Anesthesia type and monitoring: general GIVS and standard monitoring Results Review: All pre-operative results and documents have been reviewed as part of the pre- operative evaluation. Informed Consent: The patient's anesthetic plan and its attendant risks and benefits were disc ussed with the patient/family/POA. Questions were solicited and answers provided to the satisfaction of the patient/family/POA.
[2025-01-17 09:06] VITALS: BP 129/79; PULSE 58; RESP 20; O2SAT 100
[2025-01-17 09:16] VITALS: BP 135/78; PULSE 53; RESP 17; O2SAT 99
[2025-01-17 09:26] VITALS: BP 159/75; PULSE 57; RESP 16; O2SAT 100
== END 2025-01-17 09:36 | disposition home or self-care (01) ==
PROVIDERS: Visit Provider Internal Medicine Gastroenterology
PROC: 0DJD8ZZ Inspection of Lower Intestinal Tract, Via Natural or Artificial Opening Endoscopic (ICD-10-PCS; CPT 45378; principal; 2025-01-17 09:00)
DX: Z12.11 Encounter for screening for malignant neoplasm of colon (principal); K57.30 Diverticulosis of large intestine without perforation or abscess without bleeding
CPT/HCPCS: 45378; J2003; J2704; J7120

== ENCOUNTER 2025-01-29 12:33 | Outpatient (CLI) | payer OTHER, SELFPAY ==
--- NOTE | ~2025-01-29 | DEXA_ITS ---
Bone Density Report Name: SREEKANTH AGUILAR Age: 64 Sex: Female Ethnicity: White Date of : 1960 Indication: postmenopausal; screening for osteoporosis; height loss; prior fracture; asthma or emphysema; Referring Provider: EUNICE, JAVON Perez Study: Bone densitometry was performed. Exam Date: January 29, 2025 Accession number: [id number] Bone Density: Region BMD T-score Z-score Classification AP Spine(L1-L4) 0.887 -1.5 0.1 Osteopenia Femoral Neck (Left) 0.639 -1.9 -0.5 Osteopenia Total Hip (Left) 0.717 -1.8 -0.8 Osteopenia Femoral Neck (Right) 0.609 -2.2 -0.8 Osteopenia Total Hip (Right) 0.677 -2.2 -1.1 Osteopenia Total Hip Mean 0.697 -2.0 -1.0 Osteopenia World Health Organization criteria for BMD impression classify patients as: Normal (T-score at or above -1.0), Osteopenia (T-score between -1.0 and -2.5), or Osteoporosis (T-score at or below -2.5). 10-year Fracture Risk(1): Major Osteoporotic Fracture 17% Hip Fracture 2.7% Reported Risk Factors: [place] (), Neck BMD=0.609, BMI=22.8, previous fracture (1) FRAX(R) Version 3.08. Fracture probability calculated for an untreated patient. Fracture probability may be lower if the patient has received treatment. Clinical Information Provided by Patient: Has had a low trauma fracture Has used the following medications: Vitamin D, Calcium Has the following medical conditions: Asthma or Emphysema Patient maximum height was 68 Menopause Age: 59 No regular weight bearing exercise Does not regularly consume dairy products Drinks caffeinated beverages Onset of menses at age 17 Number of children 1 Impression: The patient has low bone mass, based on the Right Total Hip T-score. The patient has an estimated ten-year risk of hip fracture of 2.7% and an estimated ten-year risk of major fracture of 17%, based on the WHO FRAX algorithm. The patient has risk factors, including: previous fracture. Discussion: BONE DENSITY IS LOW AT ONE OR MORE SKELETAL SITES. This patient's lowest T-score is low at one or more skeletal sites. It meets the World Health Organization's (WHO) criteria for ?low bone mass? (T-score between -1.0 and -2.5). The patient's 10-year risk of fracture as calculated by FRAX is less than the threshold where pharmacological therapy is recommended by the National Osteoporosis Foundation (NOF). However, all treatment decisions require clinical judgment and consideration of individual patient factors, including patient preferences, comorbidities, previous drug use, risk factors not captured in the FRAX model (e.g., frailty, falls, vitamin D deficiency, increased bone turnover, interval significant decline in bone density) and possible under or overestimation of fracture risk by FRAX. The patient should follow a healthful lifestyle (good nutrition with adequate calcium and vitamin D, and appropriate weight-bearing exercise). Follow-Up: Consider repeating this study in 2 to 3 years to reassess this patient's status, or sooner if there is some new clinical indication. Reported by: LAURA on 01/29/2025 1:03:00 PM. Reviewed, dictated and finalized at location A.
== END 2025-01-29 12:34 | disposition home or self-care (01) ==
LOC: MICIMG 12:33
DX: Z78.0 Asymptomatic menopausal state (principal); M85.88 Other specified disorders of bone density and structure, other site; M85.852 Other specified disorders of bone density and structure, left thigh; M85.851 Other specified disorders of bone density and structure, right thigh
CPT/HCPCS: 77080